=== PATIENT | female | born 1950 | race Caucasian/White ===

== ENCOUNTER 2019-04-18 17:02 | Emergency (ER) | payer MEDICARE, OTHER ==
[~2019-04-18] VITALS: Ht 160 cm; Wt 69.4 kg
[2019-04-18 17:05] VITALS: Ht 160 cm; Wt 69.4 kg
[2019-04-18] MEDS ORDERED: CARBAMIDE PEROXIDE 6.5% 15ML OTIC RIGHT EAR ONE (20:00)
[2019-04-18 20:22] VITALS: BP 167/82; PULSE 57; RESP 16
--- NOTE | 2019-04-18 20:32 | ERD ---
ER Documentation Chief Complaint Chief Complaint right ear pain & ringing x6 days, had ears cleaned by pmd HPI This is a 69-year-old female with history of hypertension presents to the ED complaining of sensation of foreign body in her right ear for the past 6 days. Patient states she returns to her primary care provider who irrigated both of her ears but does not think that the right ear was irrigated fully. She denies any tinnitus or photophobia. She denies any decreased hearing. Denies any trauma. Denies any fevers or chills. Denies dizziness or vertigo. She states she has a history of recurrent debris and wax buildup in her ears. ROS All systems reviewed and are negative except as per history of present illness. Allergies Allergies: Coded Allergies: No Known Allergy (Unverified , 04/18/19) PMhx/Soc Hx Cardiac Disorders: Yes (htn) Hx Alcohol Use: No Hx Substance Use: No Hx Tobacco Use: No Smoking Status: Never smoker Physical Exam Vitals Vital Signs Date Temp Pulse Resp B/P (MAP) Pulse Ox O2 O2 Flow FiO2 Time Delivery Rate 04/18/19 98.5 72 18 167/77 97 17:05 (107) Physical Exam Const: No acute distress Head: Atraumatic Eyes: Normal Conjunctiva ENT: + Right external auditory canal with debris. No TM perforation. TM pearly. No pain with palpation of the pinna. Right TM and external auditory canal normal. No evidence of debris or cerumen. No mastoid tenderness. Neck: Full range of motion. No meningismus. Skin: No petechiae or rashes Neur: Awake and alert Psych: Normal Mood and Affect Results 24 hrs Current Medications Medications Dose Sig/Cathie Start Time Status Last (Trade) Ordered Route PRN Stop Time Admin Dose Reason Admin Carbamide 2 drop ONCE ONCE 04/18/19 DC Peroxide RIGHT EAR 20:00 (Debrox Otic) 04/18/19 20:01 Procedures/MDM MEDICAL DECISION MAKING: This is a 69-year-old female presents with a sensation of foreign body in her right ear. Patient does have evidence of what appears to be debris in her right ear. This improved after irrigation although she did have small amounts of debris left. There is no evidence of TM perforation, otitis externa, otitis media, malignant otitis externa, mastoiditis, meningitis. Patient was discharged home with Debrox and recommended PCP follow-up for likely ENT referral if symptoms persist. Strict return precautions were discussed. PRESCRIPTIONS: Debrox SPECIALIST FOLLOW UP RECOMMENDED: ENT Patient has been advised to follow up with primary care in 1-2 days. Blood Pressure Assessment: Patient's blood pressure was elevated (>120/80) but appears stable without evidence of hypertension emergency or urgency. The patient was counseled about the risks of hypertension and urged to pursue outpatient monitoring and therapy within a week with their primary care phys ician. Departure Diagnosis: Primary Impression: Keratin debris of right ear canal Condition: Stable Patient Instructions: Cerumen Impaction, Home Care Referrals: COMMUNITY CLINICS YOU HAVE RECEIVED A MEDICAL SCREENING EXAM AND THE RESULTS INDICATE THAT YOU DO NOT HAVE A CONDITION THAT REQUIRES URGENT TREATMENT IN THE EMERGENCY DEPARTMENT. FURTHER EVALUATION AND TREATMENT OF YOUR CONDITION CAN WAIT UNTIL YOU ARE SEEN IN YOUR DOCTORS OFFICE WITHIN THE NEXT 1-2 DAYS. IT IS YOUR RESPONSIBILITY TO MAKE AN APPOINTMENT FOR FOLOW-UP CARE. IF YOU HAVE A PRIMARY DOCTOR --you should call your primary doctor and schedule an appointment IF YOU DO NOT HAVE A PRIMARY DOCTOR YOU CAN CALL OUR PHYSICIAN REFERRAL HOTLINE AT IF YOU CAN NOT AFFORD TO SEE A PHYSICIAN YOU CAN CHOSE FROM THE FOLLOWING [facility] [address] [place]. [facility] [address] [facility] [address] [facility] [facility] [address] [facility] [facility] [address] [facility]. [facility]. [address] [facility]. [facility] YOU HAVE RECEIVED A MEDICAL SCREENING EXAM AND THE RESULTS INDICATE THAT YOU DO NOT HAVE A CONDITION THAT REQUIRES URGENT TREATMENT IN THE EMERGENCY DEPARTMENT. FURTHER EVALUATION AND TREATMENT OF YOUR CONDITION CAN WAIT UNTIL YOU ARE SEEN IN YOUR DOCTORS OFFICE WITHIN THE NEXT 1-2 DAYS. IT IS YOUR RESPONSIBILITY TO MAKE AN APPOINTMENT FOR FOLOW-UP CARE. IF YOU HAVE A PRIMARY DOCTOR --you should call your primary doctor and schedule and appointment IF YOU DO NOT HAVE A PRIMARY DOCTOR YOU CAN CALL OUR PHYSICIAN REFERRAL HOTLINE AT . IF YOU CAN NOT AFFORD TO SEE A PHYSICIAN YOU CAN CHOSE FROM THE FOLLOWING [facility] INSTITUTIONS: [facility] [address] [place] [address] [facility] [address] [place] [address] [facility] [address] [place] [address] [facility] URGENT C[facility]SPECIALTIES Additional Instructions: Use the Debrox at home as indicated. If symptoms not improve after 1 week. I recommend seeing your primary care provider for referral to an ENT specialist. Return here for any new or worsening symptoms. ABRIL SWEENEY PA-C Apr 18, 2019 20:31
== END 2019-04-18 20:23 | disposition home or self-care (01) ==
LOC: FTE 17:02
DX: H93.8X1 Other specified disorders of right ear (principal)
CPT/HCPCS: 99282